=== PATIENT | male | born 1975 | race Caucasian/White ===

== ENCOUNTER 2023-03-04 14:22 | Emergency (ER) | payer OTHER ==
[2023-03-04] MEDS ORDERED: Boostrix 0.5 ML (Tdap) VIAL (>/=7 yrs of age) ONE (14:45)
[2023-03-04] MEDS ORDERED: Lidocaine 1% w/Epinephrine 1:100K 20 ML VIAL ONE (14:45)
== END 2023-03-04 18:10 ==
LOC: ERS 14:22
DX: S01.91XA Laceration without foreign body of unspecified part of head, initial encounter (principal); S06.0XAA Concussion with loss of consciousness status unknown, initial encounter; Y04.0XXA Assault by unarmed brawl or fight, initial encounter; Z23 Encounter for immunization; Z87.891 Personal history of nicotine dependence
CPT/HCPCS: 12014; 70450; 72125; 90471; 90715